=== PATIENT | male | born 1990 | race American Indian/Alaskan Native ===

== ENCOUNTER 2017-07-09 09:25 | Inpatient (IN) | payer MEDICAID, OTHER ==
[2017-07-09 09:57] VITALS: BMI 27.6
--- NOTE | 2017-07-09 10:20 | C.PDOC ---
Addendum entered and electronically signed by Israel Rubin MD 07/10/17 06:04: Physician Patient Turnover Patient Signed Over To: Rosana Rizvi Handoff Comments: pending evaluation by dr alaniz, before transfer to [facility] (formerly [facility])[3] Addendum entered and electronically signed by Israel Rubin MD 07/10/17 04:30: ED OBSERVATION - Progress Note Progress Note: 07/10/17 04:11 pending psychiatrist evaluation Original Note: History Of Present Illness <Fiona Issa - Last Filed: 07/09/17 18:52> <Israel Rubin - Last Filed: 07/10/17 06:03> <Rosana Rizvi - Last Filed: 07/10/17 09:39> 26 year old male was brought to the ED by family for evaluation of "bizarre behavior." As per patient's mother, patient has been acting odd but she is not describing in what capacity. On arrival to ED patient has prescription for Ibuprofen and Tramadol. Patient is not providing information, history is limited. (Fiona Issa) History Per: Family History/Exam Limitations: clinical condition (patient is not providing information and family is not describing bizarre behavior ) Onset/Duration Of Symptoms: Unknown Current Symptoms Are (Timing): Still Present Recent travel outside of the [place]: No <Fiona Issa - Last Filed: 07/09/17 18:52> <Israel Rubin - Last Filed: 07/10/17 06:03> <Rosana Rizvi - Last Filed: 07/10/17 09:39> Time Seen by Provider: 07/09/17 09:38 Chief Complaint (Nursing): Psychiatric Evaluation Past Medical History Reviewed: Historical Data, Nursing Documentation, Vital Signs - Medical History PMH: Bronchitis Family History: States: Unknown Family Hx - Social History Hx Tobacco Use: Yes Hx Alcohol Use: Yes Hx Substance Use: Yes - Immunization History Hx Tetanus Toxoid Vaccination: No Hx Influenza Vaccination: No Hx Pneumococcal Vaccination: No <Fiona Issa - Last Filed: 07/09/17 18:52> Review Of Systems Review Of Systems: ROS cannot be obtained secondary to pt's inabilty to answer questions. (patient is not answering questions) Constitutional: Negative for: Fever Respiratory: Negative for: Cough Gastrointestinal: Negative for: Vomiting, Diarrhea Psych: Positive for: Other (Bizarre behavior as per family ) <Fiona Issa - Last Filed: 07/09/17 18:52> Physical Exam - Physical Exam Appears: Non-toxic, No Acute Distress, Other (Patient is calm now. ) Skin: Warm, Dry Head: Atraumatic Eye(s): bilateral: Normal Inspection Oral Mucosa: Moist Neck: Supple Chest: Symmetrical, No Deformity Cardiovascular: Rhythm Regular Respiratory: Normal Breath Sounds, No Rales, No Rhonchi, No Wheezing Gastrointestinal/Abdominal: Soft, No Tenderness, No Distention, No Guarding, No Rebound Neurological/Psych: Oriented x3, Other (Flat affect ) Gait: Steady <Fiona Issa - Last Filed: 07/09/17 18:52> ED Course And Treatment - Laboratory Results Result Diagrams: 07/09/17 10:14 07/09/17 10:14 Lab Interpretation: Normal ECG: Interpreted By Me ECG Rhythm: Sinus Rhythm ECG Interpretation: Normal Rate From EC O2 Sat by Pulse Oximetry: 98 Pulse Ox Interpretation: Normal Progress Note: Labs were ordered and patient was evaluated by CRISIS. Case discussed and patient evaluated by crisis who discussed case with DR James. Patient to be screened by [facility]. patient aggitated and trying to elope. Treated with haldol 5 mg IM and Ativan 12 mg IM. 4 point restraints applied. Patient calm and cooperative restraints removed, mother at bedside. Patient aggitated and wants to be discharged. Additional Ativan 2 mg IV and Haldol 5 mg IM ordered Reassessment Condition: Improved <Fiona Issa - Last Filed: 07/09/17 18:52> - Laboratory Results Result Diagrams: 07/09/17 10:14 07/09/17 10:14 <Israel Rubin - Last Filed: 07/10/17 06:03> - Laboratory Results Result Diagrams: 07/09/17 10:14 07/09/17 10:14 <Rosana Rizvi - Last Filed: 07/10/17 09:39> Disposition - Disposition Disposition Time: 19:00 - POA Present On Arrival: None <Fiona Issa - Last Filed: 07/09/17 18:52> <Israel Rubin - Last Filed: 07/10/17 06:03> <Rosana Rizvi - Last Filed: 07/10/17 09:39> - Disposition Condition: STABLE - Clinical Impression Clinical Impression: Psychogenic disorder - PA / ACCOUNTS RECEIVABLE ACCOUNTANT / Resident Statement MD/DO has reviewed & agrees with the documentation as recorded. - Scribe Statement The provider has reviewed the documentation as recorded by the Scribe <Fiona Issa - Last Filed: 07/09/17 18:52> <Israel Rubin - Last Filed: 07/10/17 06:03> <Rosana Rizvi - Last Filed: 07/10/17 09:39> - Scribe Statement Angie Ramires All medical record entries made by the Scribe were at my direction and personally dictated by me. I have reviewed the chart and agree that the record accurately reflects my personal performance of the history, physical exam, medical decision making, and the department course for this patient. I have also personally directed, reviewed, and agree with the discharge instructions and disposition. (Fiona Issa) Decision To Admit <Fiona Issa - Last Filed: 07/09/17 18:52> - Pt Status Changed To: Hospital Disposition Of: Inpatient - Admit Certification Admit to Inpatient:: After my assessment, the patient will require hospitalization for at least two midnights. This is because of the severity of symptoms shown, intensity of services needed, and/or the medical risk in this patient being treated as an outpatient. - InPatient: Physician Admission Certification: I certify that this patient requires 2 or more midnights of care for the following reason:: needs inpatient psych - . Bed Request Type: Psychiatry Admitting Physician: Lashaun Alaniz <Rosana Rizvi - Last Filed: 07/10/17 09:39> - . Patient Diagnosis: Psychogenic disorder
[2017-07-09 10:22] LABS: BASO # 0.1 K/uL (0.0-0.2); BASO % 1.1 % (0.0-2.0); EOS # 0.3 K/uL (0.0-0.7); EOS % 3.2 % (0.0-4.0); HEMATOCRIT 46.9 % (35.0-51.0); LYMPH # 3.1 K/uL (1.0-4.3); MEAN CELL VOLUME 86.8 fL (80.0-94.0); MEAN CORPUSCULAR HEMOGLOBIN 30.5 pg (27.0-31.0); MEAN CORPUSCULAR HGB CONC 35.1 g/dL (33.0-37.0); MONO # 0.7 K/uL (0.0-0.8); MONO % 8.4 % (0.0-10.0); NRBC % 0.1 % (0.0-2.0); RED CELL DISTRIBUTION WIDTH 13.9 % (11.5-14.5)
[2017-07-09 10:31] LABS: RBC URINE 1 /hpf (0-3); URINE BILIRUBIN NEGATIVE (NEGATIVE); URINE BLOOD NEGATIVE (NEGATIVE); URINE COLOR Yellow (YELLOW); URINE GLUCOSE (UA) NORMAL (Normal); URINE KETONE NEGATIVE (NEGATIVE); URINE LEUKOCYTE ESTERASE TRACE Leu/uL (Negative); URINE PROTEIN NEGATIVE (NEGATIVE); URINE UROBILINOGEN NORMAL mg/dL (0.2-1.0); WBC URINE 6 /hpf (0-5)
[2017-07-09 10:41] LABS: ALB/GLOB RATIO 1.4 (1.0-2.1); ALCOHOL SERUM < 10 mg/dl (0-10); ALKALINE PHOSPHATASE 77 U/L (38-126); ALT/SGPT 24 U/L (21-72); AST/SGOT 33 U/L (17-59); BILIRUBIN,TOTAL 0.9 mg/dL (0.2-1.3); BLOOD UREA NITROGEN 10 mg/dL (9-20); CALCIUM 10.1 mg/dl (8.6-10.4); CARBON DIOXIDE 28 mmol/L (22-30); CHLORIDE 101 mmol/L (98-107); GFR AFRICAN-AMERICAN > 60; GLUCOSE,RANDOM 86 mg/dL (75-110); POTASSIUM 4.3 mmol/L (3.6-5.2); SODIUM 144 mmol/L (132-148); TOTAL PROTEIN 8.1 g/dL (6.3-8.3)
--- NOTE | 2017-07-09 14:20 | RAD ---
PROCEDURE: CHEST RADIOGRAPH, 1 VIEW HISTORY: SOB COMPARISON: None available. FINDINGS: LUNGS: Clear. PLEURA: No pneumothorax or pleural fluid seen. CARDIOVASCULAR: Normal. OSSEOUS STRUCTURES: No significant abnormalities. VISUALIZED UPPER ABDOMEN: Normal. OTHER FINDINGS: None. IMPRESSION: No acute cardiopulmonary disease appreciated.
[2017-07-10 09:44] VITALS: O2SAT 98
--- NOTE | 2017-07-10 10:00 | PCM.PSYCH ---
Initial Psychiatric Evaluation - Initial Psychiatric Evaluation Type of Admission: Voluntary Legal Status: Capacity Chief Complaint (in patient's own words): "I am OK now" Patient's Reaction to Hospitalization: Admit to 5E History of Present Illness and Precipitating Events: The patient is seen, chart reviewed and case discussed. All medical records including [facility] evaluation read. This is a 26-year-old -[place] male, single, no child, unemployed and living with his aunt who he calls "mom" The patient currently reports no significant psychiatric symptoms as he is somewhat guarded. He states that he has never been to psychiatric treatment before, not traumatized, never hurt anyone, and he denies being suicidal/ homicidal. When confronted with the history his aunt/mother gave (i.e. carrying a knife, threatening to hurt people who owe money, etc.), he denies making homicidal threats but he admits to taking knife with him one time but he explains it with his need to "door using the knife as he was not given keys. He has some overvalued ideas, likely delusional thinking and some sabianist/ grandiose thoughts, but compared to his presentation yesterday he is much better today. When confronted with if this could be due to the substance, i.e. synthetic cannabionoids, he states he took them more than a year ago and recently he is only using marijuana. He claims he sleeps okay, denies depressive mood or anhedonia. He is future oriented and denies suicidal or homicidal ideation. He wants to apply for food stamps and look for housing. 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 Past psych history: Denies Medical history: Denies Family psych history: Denies Past Psychiatric History - Past Psychiatric History Previous Treatment History: None Pertinent Medical Hx (Current Medical&Sleep Prob, Allergies): Allergies Allergy/AdvReac Type Severity Reaction Status Date / Time No Known Allergies Allergy Verified 07/09/17 10:01 Ibuprofen [Advil] 800 mg PO TID #20 tab 06/18/13 Tramadol HCl [Ultram] 50 mg PO TID 07/09/17 Review of Systems - Psychiatric Psychiatric: Abnormal Sleep Pattern, Anxiety, Behavioral Changes, Difficulty Concentrating, Irritability, Mood Swings, Paranoia. absent: Hallucinations, Homicidal Ideation, Suicidal Ideation Mental Status Examination - Personal Presentation Personal Presentation: Looks stated age - Affect Affect: Constricted - Motor Activity Motor Activity: Calm - Reliability in Providing Information Reliability in Providing Information: Good - Speech Speech: Organized - Mood Mood: Anxious - Formal Thought Process Formal Thought Process: Delusions (less today), Paranoia - Cognitive Functions Orientation: Person, Place, Situation, Time Sensorium: Alert Attention/Concentration: Attentive Estimate of Intelligence: Average Judgement: Imparied, as evidence by: Poor judgement (wants to leave), Intact, as evidence by: Insight regarding need for hospitalization Memory: Recent intact, as evidence by: Ability to recall events of the day, Remote intact, as evidenced by: Abilit to recall sig. life events - Risk Risk: Diminished functioning - Strength & Assets Inventory Strength & Assets Inventory: Family support, Cooperative - Limitations Limitations: Other DSM 5 DX - DSM 5 DSM 5 Diagnosis: Psychosis - unspecified r/o Bipolar d/o - unspecified Cannabis use d/o - severe - Recommended/Plan of Treatment Treatment Recommendations and Plan of Treatment: Pt agreed to be admitted Start Abilify for mood stabilization Attend groups and activities Individual therapy Psychoeducation and support Encourage compliance with meds and after care Refer to outpatient program Teach healthy lifestyle methods, i.e. diet, exercise, meditation Smoking cessation WA for cannabis use 38 min Projected ELOS: 4 days Prognosis: Good with treatment Discharge Plan and Discharge Criteria: No severe psych sxs Refer to outpt care - Smoking Cessation Smoking Cessation Initiated: Yes
--- NOTE | 2017-07-10 11:27 | PCM.BM ---
<Lyndsey Rodriguez - Last Filed: 07/10/17 11:25> Treatment Plan Problems - Problems identified on initial assessmt altered thought process Assessment reference: NA Status: Active Treatment assets and liabiliti Patient Assests: good support system, negotiates basic needs Patient Liabilities: substance abuse - Milieu Protocol Maintain good personal hygiene: daily Encourage regular showers, daily Remind patient to perform daily oral care, daily Assist patient to perform ADL's Conduct patient checks and document Observation sheet: Q15 minutes Maintain personal safety: every shift Educate patient to report safety concerns to staff, every shift Monitor environment for contraband/sharps Medication safety: Monitor for expected outcome, potential side effects: every shift, Assess barriers to learning: every shift, Assess readiness for medication education: every shift <RandyTamiko aiken - Last Filed: 07/11/17 11:08> Family Contact Family involvement: Family/SO is involved Family contact: Patient agrees to contact - Goals for Treatment Patient goals for treatment: "I want to go home." Discharge/Continuing Care - Education Needs Education Needs: Patient Medication, Patient Coping Skills, Patient Placement options, Patient Community resources - Discharge Discharge Criteria: Tolerates medication w/o severe side effects, Reduction of target symptoms Discharge to:: Home, With Family - Treatment Team Participation Discussed with Family/SO: Yes Was Patient/Family/SO present at Treatment Team Meeting: Yes <Lashaun Head - Last Filed: 07/11/17 14:46> - Diagnosis (1) Unspecified psychosis Status: Acute Interventions: 07/11/17 14:45 * Assess/adjust medications daily and /or as needed * Discuss risks, benefits, sided effects and alternatives of medications * See patient on an individual basis 7x/week to assess level of delusional thoughts/ideation * (2) Cannabis use disorder, severe, dependence Status: Acute Interventions: 07/11/17 14:46 * Assess 7x/week regarding severity of withdrawal * Educate regarding risks, benefits, side effects and alternatives of medications * Use Motivational Interviewing for abstinence * Use CBT for relapse prevention * Medication management for withdrawal symptoms * Encourage medication assisted treatment *
--- NOTE | 2017-07-10 12:33 | CARD ---
APPROVED REPORT EKG Measurement Heart [id number] <Conclusion> Poor data quality, interpretation may be adversely affected Normal sinus rhythm with sinus arrhythmia Normal ECG
[2017-07-11 07:37] VITALS: RESP 20
--- NOTE | 2017-07-11 14:44 | PCM.PYCHPN ---
Psychiatric Progress Note - Psychiatric Progress Note Patient seen today, length of contact: 22 min Patient Chief Complaint: "I am OK now" Problems Identified/Issues Discussed: The pt is seen alone and with the team, chart reviewed and case discussed. He wouldn;t agree with t he advertising copy writer calling his mother. He is much better than the very first day he was here; calmer, not homicidal/ suicidal and makes more sense. However, he remains religiously preoccupied (again, less now) and somewhat grandiose. 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 However, he adamantly denies holding any grudge or having thoughts of hurting someone b/c of that. He is not thought disordered anymore, slept all night and as per staff his mood is more under control (no arguments, fights, irritability) He would benefit from meds and a longer stay but he wants to be discharged [facility] and put in a 48 hr notice yesterday. He claims meds make people not think well and that he was better on marijuana. He then admitted to having used PCP recently - which explains his agitation and psychosis, likely. He was informed on the risks of drugs. Medication Change: Yes (refused abilify now, change to risperdal) Medical Record Reviewed: Yes Mental Status Examination - Cognitive Function Orientation: Person, Place, Situation, Time Memory: Intact Attention: Poor Concentration: Poor Association: WNL Fund of Knowledge: WNL - Mood Mood: Anxious - Affect Affect: Constricted - Speech Speech: Appropriate - Formal Thought Process Formal Thought Process: Delusions (less today), Paranoia - Suicidal Ideation Suicidal Ideation: No - Homicidal Ideation Homicidal Ideation: No Goal/Treatment Plan - Goal/Treatment Plan Need for Continued Stay: Discharge may exacerbated symptoms, Severe functional impairment Progress Toward Problem(s) and Goals/Treatment Plan: Pt agreed w med change but he admits to not intending to use later on Start Risperdal for mood stabilization Attend groups and activities Individual therapy Psychoeducation and support Encourage compliance with meds and after care Refer to outpatient program Teach healthy lifestyle methods, i.e. diet, exercise, meditation Smoking cessation ND for cannabis use
[2017-07-12 07:01] VITALS: BP 120/63; PULSE 86; TEMP 97.5
[2017-07-12] MEDS ORDERED: Haloperidol Decanoate 100 mg/ml Inj IM ONE (10:00)
--- NOTE | 2017-07-12 11:15 | PCM.PYCHDC ---
Mental Status Examination - Mental Status Examination Orientation: Person, Place, Situation, Time Memory: Intact Mood: Neutral Affect: Constricted Speech: Soft Attention: WNL Concentration: WNL Association: WNL Fund of Knowledge: WNL Formal Thought Process: No Impairment Description of patient's judgement and insight: partially impaired Psychotic Thoughts and Behaviors: denies any AVH Suicidal Ideation: No Current Homicidal Ideation?: No Discharge Summary - Discharge Note Reason for Hospitalization: This is a 26-year-old -Iranian male, single, no child, unemployed and living with his aunt who he calls "mom" The patient currently reports no significant psychiatric symptoms as he is somewhat guarded. He states that he has never been to psychiatric treatment before, not traumatized, never hurt anyone, and he denies being suicidal/ homicidal. When confronted with the history his aunt/mother gave (i.e. carrying a knife, threatening to hurt people who owe money, etc.), he denies making homicidal threats but he admits to taking knife with him one time but he explains it with his need to "door using the knife as he was not given keys. He has some overvalued ideas, likely delusional thinking and some alevism/ grandiose thoughts, but compared to his presentation yesterday he is much better today. When confronted with if this could be due to the substance, i.e. synthetic cannabionoids, he states he took them more than a year ago and recently he is only using marijuana. He claims he sleeps okay, denies depressive mood or anhedonia. He is future oriented and denies suicidal or homicidal ideation. He wants to apply for food stamps and look for housing. 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 Consultations:: List each consultation separately and include: 1. Reason for request. 2. Findings. 3. Follow-up Summary of Hospital Course include:: 1. Description of specific treatment plan utilized for patients during their course of treatmen. 2. Summarize the time- course for resolution of acute symptoms and/or regressed behaviors. 3. Describe issues identified and worked on during hospitalization. 4. Describe medication utilized. 5. Describe medical problems identified and treated. 6. Reassessment of suicide risk Summary of Hospital Course: During the course of his stay, patient (pt) started progressively improving however, he signed 48 hours notice and demanded to be discharged within 48 hours. He no longer remained anxious, and irritable, however he appeared mildly paranoid and psychotic. He started attending groups and meetings and started socializing. He denied any feelings of hopelessness, helplessness, and worthlessness, denied any problem with the sleep or appetite, denied suicidal ideation or homicidal ideation. Pt denied any auditory or visual hallucinations. Patient remained calm and cooperative but refused to take medications and refused to follow up with any psychiatrist upon discharge. - Final Diagnosis (DSM 5) Condition upon Discharge: STABLE DSM 5: Psychosis - unspecified r/o Bipolar d/o - unspecified Cannabis use d/o - severe Disposition: AGAINST MEDICAL ADVICE Follow-up Treatment Plan: Education: Pt was educated and counseled about the risks of drinking and abusing drugs. Pt was educated and counseled to go to the ER or call 911 if pt develop suicidal ideation or homicidal ideation, worsening of symptoms or severe side effects of the meds. - Smoking Cessation Smoking Cessation Medication prescribed: No - Antipsychotic Medications Pt discharged on 2 or more routine antipsychotic medications: No
== END 2017-07-12 11:30 | disposition left against medical advice (07) | DRG 430 ==
LOC: C.ER 09:25 → C.9OBSV 12:31 → C.5E 07-10 09:39 → OBSVTOIN 07-10 09:39
PROVIDERS: ADMIT Psychiatry & Neurology Psychiatry; ATTEND Psychiatry & Neurology Psychiatry
PROC: GZ56ZZZ Individual Psychotherapy, Supportive (ICD-10-PCS; principal; 2017-07-10)
DX: F29 Unspecified psychosis not due to a substance or known physiological condition (principal); F22 Delusional disorders; F12.20 Cannabis dependence, uncomplicated; F45.9 Somatoform disorder, unspecified; F17.210 Nicotine dependence, cigarettes, uncomplicated

== ENCOUNTER 2018-04-08 14:02 | Emergency (ER) | payer MEDICAID ==
[2018-04-08 14:12] VITALS: BMI 33.7
--- NOTE | 2018-04-08 16:04 | C.PDOC ---
History Of Present Illness 27 y/o male with history of psych issues presents to ED stating he is on the verge of a mental breakdown. Patient reports feeling more anxious and depressed , states he lost all his psychiatric medications. Patient is requesting to be evaluated and be put on medication again, denies SI/HI or any other physical complaints at this time. Time Seen by Provider: 04/08/18 14:17 Chief Complaint (Nursing): Psychiatric Evaluation History Per: Patient History/Exam Limitations: no limitations Onset/Duration Of Symptoms: Days Current Symptoms Are (Timing): Still Present Suicide/Self Injury Attempted (Context): None Modifying Factor(s): None Associated Symptoms: Anxiety, Depression Past Medical History Reviewed: Historical Data, Nursing Documentation, Vital Signs Vital Signs: Last Vital Signs Temp 98.3 F 04/08/18 16:15 Pulse 88 04/08/18 16:15 Resp 20 04/08/18 16:15 BP 128/78 04/08/18 16:15 Pulse Ox 97 04/08/18 16:15 - Medical History PMH: Bronchitis Surgical History: No Surg Hx - [facility] Procedures INDIVIDUAL PSYCHOTHERAPY, SUPPORTIVE (07/10/17) Family History: States: No Known Family Hx - Social History Hx Tobacco Use: Yes Hx Alcohol Use: Yes Hx Substance Use: Yes - Immunization History Hx Tetanus Toxoid Vaccination: No Hx Influenza Vaccination: No Hx Pneumococcal Vaccination: No Review Of Systems Constitutional: Negative for: Fever, Chills Cardiovascular: Negative for: Chest Pain Respiratory: Negative for: Shortness of Breath Gastrointestinal: Negative for: Nausea, Vomiting Skin: Negative for: Rash Psych: Positive for: Anxiety, Depression. Negative for: Suicidal ideation Physical Exam - Physical Exam Appears: Non-toxic, No Acute Distress, Other (Actively sleeping) Skin: Normal Color, Warm, Dry, No Rash Head: Atraumatic, Normacephalic Eye(s): bilateral: Normal Inspection Oral Mucosa: Moist Neck: Normal ROM, Supple Cardiovascular: Rhythm Regular Respiratory: Normal Breath Sounds, No Rales, No Rhonchi, No Wheezing Gastrointestinal/Abdominal: Soft, No Tenderness, No Guarding, No Rebound Back: Normal Inspection Neurological/Psych: Oriented x3, Normal Speech, Normal Cognition ED Course And Treatment O2 Sat by Pulse Oximetry: 99 (RA) Pulse Ox Interpretation: Normal Progress Note: The patient reports he is homeless and looking for a place to sleep. The patient has no signs of anxiety or distress at this time. Patient was given outpatient referral. Disposition - Disposition Referrals: [facility] [Outside] Disposition: HOME/ ROUTINE Disposition Time: 16:00 Condition: GOOD Additional Instructions: Follow up with the medical doctor within 1-2 days. Return if worsened. Instructions: Anxiety, Adult (DC) Forms: [facility] ([place]) - Clinical Impression Clinical Impression: Anxiety - PA / SERVICE CONSULTANT / Resident Statement MD/DO has reviewed & agrees with the documentation as recorded. - Scribe Statement The provider has reviewed the documentation as recorded by the Claudineibnelli Lowry All medical record entries made by the Nagi were at my direction and personally dictated by me. I have reviewed the chart and agree that the record accurately reflects my personal performance of the history, physical exam, medical decision making, and the department course for this patient. I have also personally directed, reviewed, and agree with the discharge instructions and disposition.
[2018-04-08 16:46] VITALS: BP 128/78; PULSE 88; RESP 20; TEMP 98.3
[2018-04-09 08:09] VITALS: O2SAT 99
== END 2018-04-08 16:15 | disposition home or self-care (01) ==
LOC: C.ER 14:02
DX: F41.9 Anxiety disorder, unspecified (principal); Z59.0 Homelessness

== ENCOUNTER 2018-10-31 13:37 | Emergency (ER) | payer MEDICAID ==
[2018-10-31 13:37] VITALS: BMI 33.7
[2018-10-31 14:04] VITALS: BP 136/83; PULSE 92; RESP 20; TEMP 98; O2SAT 977
--- NOTE | 2018-10-31 14:32 | C.PDOC ---
History Of Present Illness Patient reports "racing thoughts and some depression" that started earlier today, states "there has been a lot going on right now". Denies SI/HI. Denies visuali or auditory hallucinations. Only complaint is "I have bad dreams when I sleep, of angels and demons and things". He is AAOx3. Denies any illicit drug or EtOH use, states that he sometimes uses marijuana but "I haven't smoked because me and my weed man aren't getting along right now". No known psych history, takes no psych meds. Time Seen by Provider: 10/31/18 14:20 Chief Complaint (Nursing): Psychiatric Evaluation Past Medical History Reviewed: Historical Data, Nursing Documentation, Vital Signs Vital Signs: Last Vital Signs Temp 98 F 10/31/18 14:00 Pulse 92 H 10/31/18 14:00 Resp 20 10/31/18 14:00 BP 136/83 10/31/18 14:00 Pulse Ox 977 H 10/31/18 14:00 - Medical History PMH: Bronchitis, HTN Denies: Depression, Diabetes, Hepatitis, HIV, Seizures, Sexually Transmitted Disease - [facility] Procedures INDIVIDUAL PSYCHOTHERAPY, SUPPORTIVE (07/10/17) Family History: States: Unknown Family Hx - Social History Hx Tobacco Use: Yes Hx Alcohol Use: Yes Hx Substance Use: Yes - Immunization History Hx Tetanus Toxoid Vaccination: No Hx Influenza Vaccination: No Hx Pneumococcal Vaccination: No Review Of Systems Except As Marked, All Systems Reviewed And Found Negative. Constitutional: Negative for: Fever Cardiovascular: Negative for: Chest Pain Respiratory: Negative for: Cough, Shortness of Breath Gastrointestinal: Negative for: Nausea, Vomiting, Abdominal Pain, Diarrhea Skin: Negative for: Rash Neurological: Negative for: Confusion, Altered Mental Status Psych: Positive for: Depression. Negative for: Suicidal ideation Physical Exam - Physical Exam Appears: Non-toxic, No Acute Distress Skin: Normal Color, Warm, Dry Head: Normacephalic Eye(s): bilateral: Normal Inspection Oral Mucosa: Moist Chest: Symmetrical Cardiovascular: Rhythm Regular Respiratory: Normal Breath Sounds Gastrointestinal/Abdominal: Normal Exam Extremity: Normal ROM Neurological/Psych: Oriented x3, Normal Speech Gait: Steady ED Course And Treatment O2 Sat by Pulse Oximetry: 977 Medical Decision Making Medical Decision Making: Patient with no SI or HI, can be discharged for outpatient psych followup. Patient also briefly evaluated by crisis who agrees with outpatient psych followup. Disposition - Disposition Disposition: HOME/ ROUTINE Disposition Time: 14:35 Condition: STABLE Forms: [facility] (I[place]ic) - Clinical Impression Clinical Impression: Depression, Nightmares
== END 2018-10-31 14:45 | disposition home or self-care (01) ==
LOC: C.ER 13:37
DX: F32.9 Major depressive disorder, single episode, unspecified (principal); F51.5 Nightmare disorder

== ENCOUNTER 2019-01-07 14:42 | Emergency (ER) | payer MEDICAID | END 2019-01-07 18:10 | disposition home or self-care (01) | LOC: C.ER 14:42 ==

== ENCOUNTER 2019-03-14 18:36 | Observation (INO) | payer MEDICAID ==
[2019-03-14 18:42] VITALS: BMI 33.0
--- NOTE | 2019-03-14 19:41 | C.PDOC ---
History Of Present Illness 28 year old male presents to the ED for evaluation of frequent headaches, falling sleep put of nowhere. Patient also reports occasionally snoring, patient does not remember anything when he falls sleep. Patient states he has been going on for a while. Patient denies fever, chills, nausea, vomit, visual changes, dizziness, weakness, numbness. Time Seen by Provider: 03/14/19 19:41 Chief Complaint (Nursing): Medical Clearance History Per: Patient History/Exam Limitations: no limitations Onset/Duration Of Symptoms: Days Current Symptoms Are (Timing): Still Present Recent travel outside of the [place]: No Additional History Per: Patient Past Medical History Reviewed: Historical Data, Nursing Documentation, Vital Signs Vital Signs: Last Vital Signs Temp 98.5 F 03/14/19 18:42 Pulse 90 03/14/19 18:42 Resp 18 03/14/19 18:42 BP 121/78 03/14/19 18:42 Pulse Ox 98 03/14/19 18:42 Primary Care Provider: Milana Harding - Medical History PMH: Bronchitis (PT DENIES), HTN (PT DENIES) Denies: Depression, Diabetes, Hepatitis, HIV, Seizures, Sexually Transmitted Disease Surgical History: No Surg Hx - [facility] Procedures INDIVIDUAL PSYCHOTHERAPY, SUPPORTIVE (07/10/17) Family History: States: Unknown Family Hx - Social History Hx Tobacco Use: Yes Hx Alcohol Use: No (PT DENIES) Hx Substance Use: Yes - Immunization History Hx Tetanus Toxoid Vaccination: No Hx Influenza Vaccination: No Hx Pneumococcal Vaccination: No Review Of Systems Constitutional: Negative for: Fever, Chills Eyes: Negative for: Vision Change Cardiovascular: Negative for: Chest Pain Respiratory: Negative for: Shortness of Breath Gastrointestinal: Negative for: Nausea, Vomiting, Abdominal Pain Skin: Negative for: Rash Neurological: Negative for: Weakness, Numbness, Headache, Dizziness Physical Exam - Physical Exam Appears: Non-toxic, No Acute Distress Skin: Warm, Dry Head: Normacephalic Eye(s): bilateral: Normal Inspection, PERRL, EOMI Oral Mucosa: Moist Neck: No Midline Cervical Tenderness, Supple Chest: Symmetrical Cardiovascular: Rhythm Regular Respiratory: No Rales, No Rhonchi, No Wheezing Gastrointestinal/Abdominal: Soft, No Tenderness, No Distention Extremity: Bilateral: Atraumatic, Normal Color And Temperature, Normal ROM Neurological/Psych: Oriented x3, Normal Speech, Normal Cognition Gait: Steady ED Course And Treatment - Laboratory Results Result Diagrams: 03/14/19 20:04 03/14/19 20:04 ECG: Interpreted By Me, Viewed By Me O2 Sat by Pulse Oximetry: 98 (ON RA) Pulse Ox Interpretation: Normal - Radiology CXR: Interpreted by Me, Viewed By Me CXR Interpretation: No: Infiltrates, Fracture, Pnemothorax Progress Note: Plan: - VBG. - CT head. - Labs. - CXR. - UA Disposition Discussed With .: Dale Harding [facility] took [facility] care at 10:58 PM Doctor Will See Patient In The: Hospital Counseled Patient/Family Regarding: Studies Performed, Diagnosis - Disposition Disposition: HOSPITALIZED Disposition Time: 19:41 Condition: GUARDED Forms: [facility] (Tajik) - POA Present On Arrival: None - Clinical Impression Clinical Impression: Narcolepsy, Malaise and fatigue, Sleep apnea - Scribe Statement The provider has reviewed the documentation as recorded by the Scribe Devyn Cote All medical record entries made by the Scribe were at my direction and personally dictated by me. I have reviewed the chart and agree that the record accurately reflects my personal performance of the history, physical exam, medical decision making, and the department course for this patient. I have also personally directed, reviewed, and agree with the discharge instructions and disposition. Decision To Admit - Pt Status Changed To: Hospital Disposition Of: Observation - . Bed Request Type: Regular Admitting Physician: Dale Harding Patient Diagnosis: Narcolepsy, Malaise and fatigue, Sleep apnea
[2019-03-14 20:11] LABS: VENOUS BLOOD GAS BASE EXCESS 2.5 mmol/L (0.0-2.0); VENOUS BLOOD GAS PCO2 48 mmHg (40-60); VENOUS BLOOD GAS PO2 60 mm/Hg (30-55); VENOUS BLOOD PH 7.38 (7.32-7.43)
[2019-03-14 20:14] LABS: BASO # 0.1 K/uL (0.0-0.2); BASO % 0.9 % (0.0-2.0); EOS # 0.4 K/uL (0.0-0.7); EOS % 5.1 % (0.0-4.0); HEMOGLOBIN 13.9 g/dL (12.0-18.0); LYMPH # 2.6 K/uL (1.0-4.3); LYMPH % 31.2 % (20.0-40.0); MEAN CELL VOLUME 84.8 fL (80.0-94.0); MEAN CORPUSCULAR HEMOGLOBIN 29.4 pg (27.0-31.0); MEAN CORPUSCULAR HGB CONC 34.6 g/dL (33.0-37.0); MEAN PLATELET VOLUME 8.7 fL (7.2-11.7); MONO # 0.8 K/uL (0.0-0.8); MONO % 9.5 % (0.0-10.0); NEUT # 4.4 K/uL (1.8-7.0); NEUT % 53.3 % (50.0-75.0); RBC 4.72 Mil/uL (4.40-5.90); WHITE BLOOD COUNT 8.3 K/uL (4.8-10.8)
[2019-03-14 20:27] LABS: ALB/GLOB RATIO 1.4 (1.0-2.1); ALBUMIN 4.1 g/dL (3.5-5.0); ALT/SGPT 36 U/L (21-72); AST/SGOT 35 U/L (17-59); BLOOD UREA NITROGEN 9 mg/dL (9-20); CALCIUM 9.1 mg/dl (8.6-10.4); GFR NON-AFRICAN AMERICAN > 60
[2019-03-14 20:59] VITALS: RESP 20
--- NOTE | 2019-03-15 08:05 | CT ---
Date of service: 03/14/2019 PROCEDURE: CT HEAD WITHOUT CONTRAST. HISTORY: Psychiatric evaluation. Headache. Evaluate for hemorrhage. COMPARISON: None available. TECHNIQUE: Axial computed tomography images were obtained through the head/brain without intravenous contrast. Radiation dose: Total exam DLP = 1678.34 mGy-cm. This CT exam was performed using one or more of the following dose reduction techniques: Automated exposure control, adjustment of the mA and/or kV according to patient size, and/or use of iterative reconstruction technique. FINDINGS: HEMORRHAGE: No intracranial hemorrhage. BRAIN: No mass effect or edema. No atrophy or chronic microvascular ischemic changes. VENTRICLES: Unremarkable. No hydrocephalus. CALVARIUM: Unremarkable. PARANASAL SINUSES: Mucosal retention cyst and or polyp measuring 1.5 centimeters within the anterior left sphenoid sinus. Mild mucosal thickening of the ethmoid air cells. Hypoplastic frontal sinus. MASTOID AIR CELLS: Unremarkable as visualized. No inflammatory changes. OTHER FINDINGS: Motion and streak artifact. IMPRESSION: No acute intracranial abnormality. Sinus mucosal disease as above. If symptoms persists, consider correlation with MRI. A preliminary report was generated at 10:14 p.m. on 03/14/[address] Akin Jay from [facility].
[2019-03-15 08:30] VITALS: BP 128/72; PULSE 73; TEMP 98.1; O2SAT 97
[2019-03-15 08:36] LABS: SQUAMOUS EPITHIAL < 1 /hpf (0-5); URINE BILIRUBIN NEGATIVE (NEGATIVE); URINE BLOOD NEGATIVE (NEGATIVE); URINE CLARITY Hazy (Clear); URINE COLOR Yellow (YELLOW); URINE GLUCOSE (UA) NORMAL (Normal); URINE LEUKOCYTE ESTERASE 1+ Leu/uL (Negative); URINE PROTEIN NEGATIVE (NEGATIVE); URINE UROBILINOGEN NORMAL mg/dL (0.2-1.0)
--- NOTE | 2019-03-15 08:55 | CP.PCM.PN ---
Subjective - Date & Time of Evaluation Date of Evaluation: 03/15/19 Time of Evaluation: 08:54 - Subjective Subjective: Progress note for Dr. Harding Patient was seen and examined at bedside in no acute distress. The patient reports he came to the hospital due to a severe headache and racing thoughts. He also states he constantly falls asleep because he doesn't sleep well. He says hs has a sleeping problem since he was 13 but doesn't know what the disorder is called. Patient reports having racing thoughts, talking about how someone is hurting him and ruining his life, talking about "people killing people" (but denies Homicidal or suicidal ideation). The patient talks about being agitated and how his anger is built up. During examination and history taking, the patient denies headaches, vision changes, dizziness, nausea, vomiting, fevers, abdominal pain, chest pain, dyspnea, palpitations, a/v hallucinations. PMD: Dr. Harding PMHx: Sleeping disorder? Polysubstance abuse SurgHx: denies FamHx: brother has same sleeping disorder? Allergies: NKDA Medications: "doesnt know the name" SocHx: admits to smoking 1.5ppd [id number], admits to using PCP (6-7 weeks ago) and marijuana, denies etoh use Objective - Vital Signs/Intake and Output Vital Signs (last 24 hours): Temp Pulse Resp BP Pulse Ox 98.1 F 73 20 128/72 97 03/15/19 08:29 03/15/19 08:29 03/15/19 08:29 03/15/19 08:29 03/15/19 08:29 - Medications Medications: Current Medications Enoxaparin Sodium (Lovenox) 40 mg SC DAILY BRAULIO - Labs Labs: 03/14/19 20:04 03/14/19 20:04 PT 11.0 SECONDS (9.7-12.2) 03/14/19 20:04 INR 1.0 03/14/19 20:04 APTT 37.0 SECONDS (21-34) H 03/14/19 20:04 - Constitutional Appears: No Acute Distress - Head Exam Head Exam: ATRAUMATIC, NORMAL INSPECTION - Eye Exam Eye Exam: EOMI - ENT Exam ENT Exam: Mucous Membranes Moist - Respiratory Exam Respiratory Exam: Clear to Ausculation Bilateral, NORMAL BREATHING PATTERN. absent: Rales, Rhonchi, Wheezes, Respiratory Distress - Cardiovascular Exam Cardiovascular Exam: REGULAR RHYTHM, +S1, +S2 - GI/Abdominal Exam GI & Abdominal Exam: Soft, Normal Bowel Sounds. absent: Distended, Firm, Tenderness - Extremities Exam Extremities Exam: Normal Inspection. absent: Pedal Edema, Tenderness - Neurological Exam Neurological Exam: Alert, Awake, Oriented x3 - Psychiatric Exam Psychiatric exam: Normal Affect, Normal Mood - Skin Skin Exam: Dry, Normal Color, Warm Assessment and Plan - Assessment and Plan (Free Text) Plan: Psychosis - Psychiatrist, Dr. 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 * Was cleared by Psychiatrist to leave against medical advice. * Risks were discussed with patient who understood and signed the AMA form. Encouraged patient to return to nearest ER if symptoms worsen or has thoughts of hurting self/others. Polysubstance abuse - Tobacco abuse - UDS: + marijuana, + PCP Headache - While in the ED, Head CT, Brain MRI, and neuro consult were ordered. Head CT was ordered and negative for acute pathology. Brain MRI was taken this morning, but currently there is no official report. DISPO: Was cleared by Psychiatrist to leave against medical advice. Risks were discussed with patient who understood and signed the AMA form. Encouraged patient to return to nearest ER if symptoms worsen or has thoughts of hurting self/others. Case discussed with Dr. Harding and Dr. Sonido Mauro, PGY2
[2019-03-15 09:04] LABS: BARBITURATES, UR NEGATIVE (NEGATIVE); BENZODIAZEPINES, UR NEGATIVE (NEGATIVE); OPIATES, UR NEGATIVE (NEGATIVE)
[2019-03-15 09:28] LABS: PHENCYCLIDINE, UR POSITIVE (NEGATIVE)
[2019-03-15] MEDS ORDERED: Enoxaparin 40 mg Syringe SC SCH (10:00)
--- NOTE | 2019-03-15 10:13 | RAD ---
Date of service: 03/14/2019 PROCEDURE: CHEST RADIOGRAPH, 1 VIEW HISTORY: SOB COMPARISON: 01/07/2019 FINDINGS: LUNGS: Clear. PLEURA: No pneumothorax or pleural fluid seen. CARDIOVASCULAR: No aortic atherosclerotic calcification present. Normal. OSSEOUS STRUCTURES: No significant abnormalities. VISUALIZED UPPER ABDOMEN: Normal. OTHER FINDINGS: None. IMPRESSION: No active disease.No significant interval change compared to the prior examination(s). Concordant results with the preliminary interpretation rendered by the emergency department physician procedure.
--- NOTE | 2019-03-15 11:58 | MRI ---
Date of service: 03/15/2019 PROCEDURE: MRI BRAIN WITHOUT CONTRAST HISTORY: New onset narcolepsy COMPARISON: None available. TECHNIQUE: Multiplanar, multisequence MR images of the brain were obtained without intravenous contrast enhancement. FINDINGS: HEMORRHAGE: None DWI: No evidence of an acute or early subacute infarction. BRAIN PARENCHYMA: No mass effect or edema. No atrophy or chronic microvascular ischemic changes. VENTRICLES: Unremarkable. No hydrocephalus. CRANIUM: Unremarkable. ORBITS: Grossly unremarkable. PARANASAL SINUSES/MASTOIDS: Clear VASCULAR SYSTEM: Skull base flow voids intact. OTHER FINDINGS: None. IMPRESSION: Unremarkable non contrast enhanced MRI of the brain.
--- NOTE | 2019-03-15 12:22 | PCM.PSYCH ---
Initial Psychiatric Evaluation - Initial Psychiatric Evaluation Type of Admission: Voluntary Legal Status: Capacity Chief Complaint (in patient's own words): "I'm fine" History of Present Illness and Precipitating Events: The patient is seen, chart reviewed and case discussed. Consult was requested for his agitation and wanting to leave AMA He is a 28 yo AAM, single, unemployed, lives with his mother He came here for dizziness and had a CT scan but then he is found to have PCP in his urine. He then started to refuse all the tests and claims he is OK and wants to leave. When policy writer typist saw him, he was moderately agitated but agreed to take the haldol, and then ativan PO pils. He denied SI, HI, any intend to hurt self or others. He understood the risks of leaving AMA. He also understood that PCP along with cannabis made him hyper and too talkative He was sexually preoccupied in his speech and was circumstantial, overinclusive No delusions elicited but he seemed paranoid. He agreed to stay home today and come back to ER if still sick, agitated, manic, suicidal/homicidal Past psych hx: Denied Medical hx: Obese Current Medications: Active Medications Generic Name Dose Route Start Last Admin Trade Name Freq PRN Reason Stop Dose Admin Pneumococcal Polyvalent Vaccine 0.5 ml 03/16/19 10:00 Pneumovax 23 Vaccine IM 03/16/19 10:01 .ONCE ONE Past Psychiatric History - Past Psychiatric History Previous Treatment History: None Pertinent Medical Hx (Current Medical&Sleep Prob, Allergies): Allergies Allergy/AdvReac Type Severity Reaction Status Date / Time No Known Allergies Allergy Verified 03/14/19 18:42 No Known Home Med 03/14/19 Review of Systems - Review of Systems Systems not reviewed;Unavailable: Uncooperative Mental Status Examination - Personal Presentation Personal Presentation: Looks older than stated age - Affect Affect: Constricted - Motor Activity Motor Activity: Psychomotor Agitation - Reliability in Providing Information Reliability in Providing Information: Fair - Speech Speech: Disorganized, Tangential - Mood Mood: Other (irate) - Formal Thought Process Formal Thought Process: Paranoia, Circumstantial - Cognitive Functions Orientation: Person, Place, Time Sensorium: Alert Attention/Concentration: Easily distracted Abstract Thinking: Pax Estimate of Intelligence: Average Judgement: Imparied, as evidence by: Poor judgement Memory: Recent intact, as evidence by: Ability to recall events of the day, Remote impaired as evidenced by: Inability to recall sig life events - Risk Risk: Diminished functioning DSM 5 DX - DSM 5 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 Return to ER See a crisis center on [address] 33 min
[2019-03-16] MEDS ORDERED: Pneumococcal 23-Valent Vaccine IM ONE (10:00)
== END 2019-03-15 11:30 | disposition left against medical advice (07) ==
LOC: C.ER 18:36 → C.9E 22:57 → C.3T 23:11
PROVIDERS: ADMIT Internal Medicine Pulmonary Disease; ATTEND Internal Medicine Pulmonary Disease
DX: F16.24 Hallucinogen dependence with hallucinogen-induced mood disorder (principal); G47.419 Narcolepsy without cataplexy; G47.30 Sleep apnea, unspecified; R53.81 Other malaise; R45.1 Restlessness and agitation; E66.9 Obesity, unspecified; F12.20 Cannabis dependence, uncomplicated
CPT/HCPCS: 70450; 70551; 71045; 80053; 80324; 80345; 80346; 80349; 80353; 80358; 80361; 81001; 82803; 83735; 83992; 84443; 85025; 85610; 85730; 99284; G0378